=== PATIENT | female | born 1980 | race Caucasian/White ===

== ENCOUNTER 2017-11-21 07:55 | Day surgery (SDC) | payer MEDICAID ==
[~2017-11-21] VITALS: Ht 160 cm; Wt 73.0 kg
[2017-11-21] MEDS ORDERED: MIDAZOLAM 2 MG/2 ML VIAL ONE (12:12)
[2017-11-21] MEDS ORDERED: fentaNYL 0.05 MG/ML VIAL ONE (12:12)
[2017-11-21] MEDS ORDERED: diphenhydrAMINE 50 MG/ML VIAL ONE (12:13)
[2017-11-21] MEDS ORDERED: LIDOCAINE 2% 100 MG/5 ML UJET TP ONE (12:20)
[2017-11-21] MEDS ORDERED: MIDAZOLAM 2 MG/2 ML VIAL IVP ONE (14:25)
[2017-11-21] MEDS ORDERED: fentaNYL 0.05 MG/ML VIAL IVP ONE (14:25)
== END 2017-11-21 13:12 | disposition home or self-care (01) ==
LOC: MDS 07:55 → MMU 08:06 → MDS 13:12
PROVIDERS: ATTEND Internal Medicine Gastroenterology
DX: Z08 Encounter for follow-up examination after completed treatment for malignant neoplasm (principal); F17.210 Nicotine dependence, cigarettes, uncomplicated; E66.3 Overweight; Z85.038 Personal history of other malignant neoplasm of large intestine; Z90.49 Acquired absence of other specified parts of digestive tract; Z68.28 Body mass index [BMI] 28.0-28.9, adult; Z98.890 Other specified postprocedural states; Z98.51 Tubal ligation status
CPT/HCPCS: 45378; J2250; J3010; J1200